=== PATIENT | male | born 1995 | race Caucasian/White ===

== ENCOUNTER 2018-10-23 11:46 | Emergency (ER) | payer OTHER ==
[~2018-10-23] VITALS: Ht 172.7 cm; Wt 61.7 kg
--- NOTE | 2018-10-23 11:48 | NUR ---
PT BIBRA FROM HOME C/O SHARP EPIGASTRIC PAIN W/ NAUSEA AND VOMITING THAT STARTED LAST NIGHT, GOT WORST AT AROUND 0400 TODAY. PT STATES DIABETIC AND HX OF DIABETIC GASTROPARESIS. GOWNED AND PALCED ON MONITOR. VSS. AWAITING MD MARQUEZ.
--- NOTE | 2018-10-23 11:57 | NUR ---
[employer] CAPTAIN AT BEDSIDE FOR EVAL.
--- NOTE | 2018-10-23 11:58 | NUR ---
IV LINE STARTED BLOOD DRAWN AND SENT TO LAB.
[2018-10-23] MEDS ORDERED: IV NS 0.9% 1,000 ML BAG IV ONE (12:00)
[2018-10-23] MEDS ORDERED: HYDROMORPHONE INJ 2 MG/ML DISP.SYRIN IV ONE (12:00)
[2018-10-23] MEDS ORDERED: HYDROMORPHONE INJ 2 MG/ML DISP.SYRIN ONE (12:04)
[2018-10-23 12:08] LABS: BASOPHILS % (AUTO) 0.4 % (0.0-2.0); EOSINOPHILS % (AUTO) 1.3 % (0.0-6.0); HEMATOCRIT 40 % (39-51); HEMOGLOBIN 13.1 g/dL (13.5-17.5); LYMPHOCYTES # (AUTO) 2.6 /CMM (0.8-4.8); LYMPHOCYTES % (AUTO) 35.3 % (20.0-44.0); MEAN CORPUSCULAR HGB CONC 33 g/dl (31.0-36.0); MEAN CORPUSCULAR VOLUME 84 fL (80-96); MONOCYTES # (AUTO) 0.5 /CMM (0.1-1.30); MONOCYTES % (AUTO) 7.1 % (2.0-12.0); NEUTROPHILS # (AUTO) 4.1 /CMM (1.8-8.9); NEUTROPHILS % (AUTO) 55.9 % (43.0-81.0); PLATELET COUNT (AUTO) 237 /CMM (150-450); RED BLOOD CELL COUNT(AUTO) 4.73 MIL/uL (4.5-6.0); WHITE BLOOD COUNT (AUTO) 7.4 K/uL (4.3-11.0)
[2018-10-23] MEDS ORDERED: METOCLOPRAMIDE HCL 10 MG/2 ML VIAL ONE (12:09)
--- NOTE | 2018-10-23 12:19 | NUR ---
UNABLE TO PROVIDE URINE SAMPLE AT THIS TIME STATING "IM DEHYDRATED." URINAL LEFT AT BEDSIDE.
[2018-10-23 12:21] LABS: BILIRUBIN,DIRECT 0.1 mg/dL (0.0-0.2); BILIRUBIN,TOTAL 0.5 mg/dL (0.2-1.0); CREATININE 1.2 mg/dL (0.6-1.3); POTASSIUM 4.2 mmol/L (3.5-5.1); TOTAL PROTEIN, SERUM 7.8 g/dL (6.4-8.2)
[2018-10-23] MEDS ORDERED: METOCLOPRAMIDE HCL 10 MG/2 ML VIAL IV ONE (12:30)
[2018-10-23] MEDS ORDERED: INSULIN REGULAR, HUMAN 100 UNIT/ML 10 ML VIAL SQ ONE (12:30)
[2018-10-23] MEDS ORDERED: INSULIN REGULAR, HUMAN 100 UNIT/ML 10 ML VIAL ONE (12:31)
--- NOTE | 2018-10-23 14:17 | NUR ---
Patient discharged to home in stable condition. Written and verbal after care instructions given. Patient verbalizes understanding of instruction.IV removed. Catheter intact and site benign. Pressure and 4x4 applied to site. No bleeding noted.
[2018-10-23 14:18] VITALS: BP 115/66
== END 2018-10-23 14:19 | disposition home or self-care (01) ==
LOC: ER 12:01 → EDBD 12:01 → ER 14:19
DX: E10.43 Type 1 diabetes mellitus with diabetic autonomic (poly)neuropathy (principal); K31.84 Gastroparesis; R10.13 Epigastric pain; F12.10 Cannabis abuse, uncomplicated; R11.2 Nausea with vomiting, unspecified
CPT/HCPCS: 36415; 80048; 80076; 82962; 83690; 85025; 96361; 96372; 96374; 96375; 99283; A4606; J1170; J1815; J2765; J7030; Z7610